=== PATIENT | female | born 1985 | race Caucasian/White ===

== ENCOUNTER 2024-06-04 14:57 | Outpatient (AMB) | payer OTHER, SELFPAY ==
--- NOTE | 2024-06-04 15:32 | A.OFFPC_ITS ---
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 ?? Prior PCP:? [facility] Last office visit/CPE:? May for CPE Acute issue(s):? Starting Adoption Process Anxiety Cough ?? PMHx:? SurgHx:? B/L Carpal Tunnel Surgeries FHx:? Dad: HTN. mGM: Skin CA. SocHx: Nonsmoker. EtOH 1-2 dr 1-2 x a week. MJ No drugs PFSH Medical History (Updated 06/04/24 @ 16:21 by Dc Moreland) Anxiety Carpal tunnel syndrome, bilateral Surgical History (Updated 06/04/24 @ 15:38 by Aleida Williamson [facility]) History of carpal tunnel surgery Family History (Updated 06/04/24 @ 15:36 by Aleida Williamson CMA) Maternal Grandfather No problems noted. Father High blood pressure Maternal Grandmother Cancer Female Reproductive History Menstrual Date of last menstrual period: 06/03/24 Questionnaire PHQ-9 Over the last 2 weeks, how often have you been bothered by any of the following problems? 1. Little interest or pleasure in doing things: not at all 2. Feeling down, depressed, or hopeless: several days 3. Trouble falling or staying asleep, or sleeping too much: more than half the days 4. Feeling tired or having little energy: several days 5. Poor appetite or overeating: more than half the days 6. Feeling bad about yourself - or that you are a failure or have let yourself or your family down: more than half the days 7. Trouble concentrating on things, such as reading the newspaper or watching television: several days 8. Moving or speaking so slowly that other people could have noticed. Or the opposite - being so fidgety or restless that you have been moving around a lot more than usual: not at all 9. Thoughts that you would be better off or of hurting yourself in some way: not at all Total score: 9 Depression Screening Interpretation: Positive Depression Screening Done: Yes 40100 - PHQ-9 Billing: Yes Source: Developed by Drs. Vipul Lopez, Bina Sutton, Werner Shane and colleagues, with an educational carol from [employer]. Thrive Questionnaire Date Thrive assessed: 06/04/24 I am a: Patient What is your living situation today?: I have a steady place to live Within the past 12 months, did the food you bought not last and you didn't have the money to get more?: Never true Within the past 12 months, did you worry whether your food would run out before you got money to buy more?: Never true Do you have trouble paying for medicines?: No Do you have trouble getting transportation to medical appointments?: No Do you have trouble paying your heating and electricity bill?: No Do you have trouble taking care of your child, family member or friend?: No Do you have trouble with day-to-day activities such as bathing, preparing meals, shopping, managing finances, etc.?: No Are you currently unemployed and looking for a job?: No Are you interested in more education?: No Please select the resources that you would like help with: None Currently or been in a relationship where the following occur: No concerns reported THRIVE Score: 0 AUDIT C Alcohol Use Questionnaire (AUDIT-C) 1. How often do you have a drink containing alcohol?: 2-4 times a month 2. How many drinks containing alcohol do you have on a typical day when you are drinking?: 3 or 4 3. How often do you have six or more drinks on one occasion?: Less than monthly Total Score: 4 FELECIA-7 AMB Questionnaire FELECIA-7 Date FELECIA - 7 assessed: 06/04/24 Feeling nervous, anxious, or on edge: 3 = Nearly every day Not being able to stop or control worryin = Nearly every day Worrying too much about different things: 3 = Nearly every day Trouble relaxin = Not at all Being so restless that it is hard to sit still: 3 = Nearly every day Becoming easily annoyed or irritable: 1 = Several days Feeling afraid as if something awful might happen: 1 = Several days Total FELECIA-7 score (0-4 normal; 5-9 mild; 10-14 moderate; 15-21 severe): 14 Source: Developed by Drs. Vipul Lopez, Bina Sutton, Werner Shane and colleagues, with an educational carol from [employer]. FELECIA-7 Assessment Billing FELECIA-7 Assessment Tool: FELECIA-7 Assessment 10580 Review of Systems Const Denies chills, Denies fatigue, Denies fever(s), Denies headache(s) and Denies weakness ENT Denies dizziness and Denies headache(s) Card Denies chest pain, Denies lightheadedness, Denies dyspnea and Denies other (Palpitations) Resp Reports cough, Denies dyspnea, Denies wheezing and Denies other ( shortness of breath) Musc Denies numbness and Denies tingling Neuro Denies dizziness, Denies headache(s), Denies numbness, Denies tingling, Denies paresthesias and Denies weakness Psych Reports anxiety and Reports depression Endo Denies fatigue Aller/Immun Denies wheezing Physical exam (Primary Care) Vital Signs: Last Vital Signs Temp 98.1 F 06/04/24 15:44 Pulse 88 06/04/24 15:44 Resp 14 06/04/24 15:44 BP 120/78 06/04/24 15:44 Pulse Ox 97 06/04/24 15:44 Oxygen Delivery Method Room Air 06/04/24 15:44 BMI result Body Mass Index 38.7 PHQ-9: PHQ-9 Score PHQ-9: Total score 9 06/04/24 15:49 Depression Screening Interpretation: Positive Thrive Assessment: Date of Thrive Assessment Date Thrive assessed 06/04/24 06/04/24 15:47 Currently or been in a relationship where the following occur: No concerns reported Const General: no acute distress and well developed Nutritional Appearance: well nourished Orientation/consciousness: patient oriented x3 HENMT Head: Yes normocephalic and Yes atraumatic Eyes General: appearance normal, both eyes and all related structures Pupils: Equal, round and reactive pupils present EOM: EOMs intact bilaterally Resp Effort & Inspection: normal respiratory effort Auscultation: clear to auscultation bilaterally Cardio Rate: regular rate Rhythm: regular rhythm Heart sounds: S1 normal heart sound present, S2 normal heart sound present, no gallops, no murmurs and no rubs Neuro General: patient oriented x3 and gait normal Cranial nerves: Yes Equal, round and reactive pupils present Psych Affect: normal affect Coding Level of Care Code New Pt Level 3 (98438) Diagnoses Depression with anxiety F41.8 GERD (gastroesophageal reflux disease) K21.9 Cough R05.9 Neoplasm of uncertain behavior of skin D48.5 Family history of skin cancer Z80.8 Allergic sinusitis J30.9 Laboratory exam ordered as part of routine general medical examination Z00.00 Additional Codes FELECIA-7 Assessment Billing - FELECIA-7 Assessment Tool: FELECIA-7 Assessment 83035 ([id number]) PHQ-9 - 45598 - PHQ-9 Billing: Yes ([id number]) Assessment & Plan Assessment & Plan (1) Depression with anxiety: Code(s): F41.8 - Other specified anxiety disorders Category: Medical Plan: History?of?depression?and?anxiety.??PHQ-9?and?felecia?7?are?still?elevated. Will?increase?sertraline?to?75?mg?daily Patient?had?been?trying?to?get??but?h as?discontinue?this?and?is?looking?into?adoption. She?had?not?been?able?to?medication?when?she?was?trying??due?to?symptoms ?of?anxiety?and?depression. Would?decrease?50?mg?or?below?if?she?again?wants?to?try?to?become?. (2) GERD (gastroesophageal reflux disease): Code(s): K21.9 - Gastro-esophageal reflux disease without esophagitis Category: Medical Plan: She?uses?Tagamet?which?helps?her?symptoms?when?she?needs?it. Only?getting?symptoms?once?month?or?so?now. Discussed?lifestyle?changes Also?discussed?using?a?predictive?strategy?rather?than?on?treating?after?the?fac t. (3) Cough: Code(s): R05.9 - Cough, unspecified Category: Medical Plan: Patient?notes?recurrent?cough This?may?be?multifactorial?including?GERD?and?sinusitis Will?try?to?treat?these?underlying?issues?and?if?she?is?still?having?problem,?wi ll?consider?a?chest?x-ray?and?further?workup. Checking?CBC?is?well (4) Neoplasm of uncertain behavior of skin: Code(s): D48.5 - Neoplasm of uncertain behavior of skin Category: Medical Plan: Small?lesion?at?the?right?side?of?her?nose. Patient?has?a?family?history?of?skin?cancer Referred?to?dermatology (5) Family history of skin cancer: Code(s): Z80.8 - Family history of malignant neoplasm of other organs or systems Category: Medical Plan: As?above (6) Allergic sinusitis: Code(s): J30.9 - Allergic rhinitis, unspecified Category: Medical Plan: Allergic?sinusitis?with?noninfected effusion?and?right?TM Discussed?multiple?options?for?treating?allergic?rhinitis?and?sinusitis. Patient?will?try?nasal?saline,?humidified?air?and?a?second- generation?antihistamine. She?will?let?me?know?if?she?wants?further?interventions?or?referral?to?ENT. (7) Laboratory exam ordered as part of routine general medical examination: Code(s): Z00.00 - Encounter for general adult medical examination without abnormal findings Category: Medical Plan: Check?labs Orders: Orders Comprehensive [place]. Panel Fast Today Z00.00 - Encounter for general adult medical examination without abnormal findings Lipid Panel Today Z00.00 - Encounter for general adult medical examination without abnormal findings TSH reflex Free T4 Today Z00.00 - Encounter for general adult medical examination without abnormal findings UA and rflx microscopic Today Z00.00 - Encounter for general adult medical examination without abnormal findings Complete Blood Count Auto Diff Today R05.9 - Cough, unspecified, Z00.00 - Encounter for general adult medical examination without abnormal findings Microalbumin, Random (w Creat) Today I10 - Essential (primary) hypertension Referrals Dermatology Referral D48.5 - Neoplasm of uncertain behavior of skin Medications: New sertraline 75 mg (1.5 x 50 mg) PO DAILY 90 days 135 tabs 3RF
[2024-06-04 15:44] VITALS: BP 120/78; PULSE 88; RESP 14; TEMP 36.7; O2SAT 97; BMI 38.7
== END 2024-06-04 16:17 | disposition home or self-care (01) ==
PROVIDERS: PCP Registered Nurse; Visit Provider Family Medicine
DX: F41.8 Other specified anxiety disorders (principal); K21.9 Gastro-esophageal reflux disease without esophagitis; R05.9 Cough, unspecified; D48.5 Neoplasm of uncertain behavior of skin; Z80.8 Family history of malignant neoplasm of other organs or systems; J30.9 Allergic rhinitis, unspecified; Z00.00 Encounter for general adult medical examination without abnormal findings

== ENCOUNTER → 2024-06-04 14:57 | Outpatient (BNVA) | payer OTHER, SELFPAY | PROVIDERS: PCP Registered Nurse; Visit Provider Family Medicine | DX: F41.8 Other specified anxiety disorders (principal); K21.9 Gastro-esophageal reflux disease without esophagitis; R05.9 Cough, unspecified; D48.5 Neoplasm of uncertain behavior of skin; J30.9 Allergic rhinitis, unspecified; Z79.899 Other long term (current) drug therapy; Z80.8 Family history of malignant neoplasm of other organs or systems | CPT/HCPCS: 96127 ==

== ENCOUNTER 2024-09-28 07:47 | Outpatient (REF) | payer OTHER, SELFPAY ==
--- OUTSIDE RECORDS SUMMARY | 2024-09-28 07:51 | XMS_ITS ---
Author Organization [employer] [facility] Address [address] [place] [address] Care Team Providers Care Sterile Processing Technologist Name Role Phone JOSEFINA CALDERON Unavailable [phone] Encounters Encounter Location Date Provider Diagnosis [facility] [address] [address] 09/02/2024 JOSEFINA CALDERON Plan Of Treatment Next Appt Details Provider Name:JOSEFINA Luo, 09/08/2025 08:00:00 AM, [address] [place] [address], [place], [address], Progress Notes * OLIMPIA CHRISTENSENDOB:1985 (38 yo F)Acc No.[id number]:09/02/2024 Patient:?OLIMPIA CHRISTENSEN :1985???Age:38 Y???Sex:Female Address:[address] [place] [address], [address] * true * Date:? Generated for Jamisoni herbie/Candie/eTransmitting on:?09/28/2024 07:51 AM EDT
--- OUTSIDE RECORDS SUMMARY | 2024-09-28 07:51 | XMS_ITS ---
Author Organization [facility] Address [address] [facility] [address] [place] [address] Care Team Providers Care Space And Missile Operations Name Role Phone JOSEFINA CALDERON Unavailable [phone] REASON FOR VISIT Paperwork Encounters Encounter Location Date Provider Diagnosis [facility] [address] [place] [address] 09/16/2024 JOSEFINA CALDERON Plan Of Treatment Next Appt Details Provider Name:JOSEFINA Luo, 09/08/2025 08:00:00 AM, [address] [place] [address] [address], [place], [address], Progress Notes * OLIMPIA CHRISTENSENDOB:1985 (38 yo F)Acc No.[id number]:09/16/2024 Patient:?OLIMPIA CHRISTENSEN :1985???Age:38 Y???Sex:Female Address:[address] [place] [address], [address] * true * Date:? Generated for Printi ng/Fafroylang/eTransmitting on:?09/28/2024 07:51 AM EDT
--- OUTSIDE RECORDS SUMMARY | 2024-09-28 07:51 | XMS_ITS | Patient Health Record ---
Author Organization [facility] Address [address] [facility] [address] [place] [address] Care Team Providers Care Professor Of Genetics Name Role Phone ORQUIDEA CALDERON Unavailable [phone] Allergies No Known Allergies Results Component Value Reference Range Notes [id number] IGP No Culture 30 Plus Reviewed date:09/05/2024 08:30:29 AM Interpretation: Performing Lab:[facility] [place], [address], [address], [place], Phone - [phone], Director - [facility] Notes/Report: Clinical Information:RIKI LOPEZ [id number] LMP / Prev Treat...EHX=[id number] Dates / Results....08/21/2023 No. of containers..01 ThinPrep Vial DIAGNOSIS: NEGATIVE FOR IN TRAEPITHELIAL LESION OR MALIGNANCY. Specimen adequacy: Satisfactory for evaluation. Endocervical and/or squamous metaplastic cells (endocervical component) are present. Clinician provided ICD10: Z01.419 Performed by: Sanjay francis, Veneer Repairer Machine ([facility]) . . Note: The Pap smear is a screening test designed to aid in the detection of premalignant and malignant conditions of the uterine cervix. It is not a diagnostic procedure and should not be used as the sole means of detecting cervical cancer. Both false-positive and false-negative reports do occur. . Test Methodology: This liquid based ThinPrep(R) pap test was screened with the use of an image guided system. HPV Aptima Negative Negative This nucleic acid amplification test detects fourteen high-risk HPV types (16,18,31,33,35,39,45,51,52, 56,58,59,66,68) without differentiation. HPV Genotype Reflex Criteria not met, HPV Genotype not performed. PDF Report Reviewed date:09/05/2024 09:07:36 AM Interpretation: Performing Lab:[facility], [address] [place] [address], [address], [place], Phone - [phone], [facility] Notes/Report: Clinical Information:RIKI LOPEZ [id number] LMP / Prev Treat...[id number] Dates / Results....08/21/2023 No. of containers..01 ThinPrep Vial SURGICAL PATHOLOGY Reviewed date:11/09/2023 11:55:19 AM Interpretation: Performing Lab:Testing performed or reported by [facility], a Service of [facility], [address] [place] [address] Ramiro Rocha MD, Pulp Mill Operator [facility]# [id number] Notes/Report: Patient Name: OLIMPIA CHRISTENSEN Lab Patient : 1985 (Age: 37) Collection Date: 10/26/2023 Accession Date: 10/26/2023 Sign Out Date: 10/30/2023 Tissue Source: 1:ECC 2:CXBX 5 O'CLOCK Final Diagnosis: 1. Endocervix, curettage: - Endocervical glandular mucosa and squamous mucosa, negative for squamous intraepithelial lesion. 2. Cervix, 5 o'clock, biopsy: - Squamous mucosa without histopathologic change. A. Endocervical columnar component not represented. Primary Pathologist:Orquidea Cox M.D. electronically signed out by: Orquidea Cox M.D. / [facility] Clinical History: LGSIL Gross Description: Part 1. Labeled endocervical curettings . Received in formalin is a 1.9 x 1.6 x 0.1 cm aggregate of translucent mucus with red, lynn tissue. The specimen is entirely submitted. 1-multiple pieces, x 2. (EG)* Part 2. Labeled 5: 00 . Received in formalin is a 0.4 x 0.3 x 0.2 cm soft white, red tissue. The specimen is entirely submitted. 1- 1 piece, x 2. (EG)* As of July 29, 2023, the specimen processing and staining is performed at [facility] [place] [facility], [address] [place] [address] (CLIA#[id number]). Its performance characteristics determined by Tim. Dane London M.D. Pulp Mill Operator of Surgical Pathology, Liana Chung M.D. Pulp Mill Operator Cytopathology Phone #: [phone], On-Call Pathologist: [id number] Test, Urine Reviewed date:10/26/2023 01:34:59 PM Interpretation: Performing Lab: Notes/Report: Test, Urine Negative Reason For Referral No Information Medications Medication SIG (Take, Route, Fr equency, Duration) Notes Start Date End Date Status Sertraline HCl 50 MG 1 1/2 tabs Orally Once a day Active Social History Tobacco Use: Social History Observation Description Date Details (start date - stop date) Never Smoker NA - NA Tobacco Use/Smoking Question Answer Notes Are you a nonsmoker AUDIT-C (Standard) Question Answer Notes Did you have a drink contain ing alcohol in the past year? Yes How often did you have a dri nk containing alcohol in the past year? 2 to 3 times a week (3 points) How many drinks did you have on a typical day when you were drinking in the past year? 1 or 2 drinks (0 point) How often did you have six o r more drinks on one occasion in the past year? Less than monthly (1 point) Points 4 Interpretation Positive Problems Problem Type SNOMED Code ICD Code Onset Dates Problem Status W/U Status Risk Notes Problem Anxiety disorder (104021176) Anxiety disorder, unspecified (F41.9) Active confirmed Problem Male infertility (6791983) Male infertility, unspecified (N46.9) Active confirmed Problem Female infertility, unspecified (N97.9) Active confirmed Problem COVID-19 (396341994) COVID-19 (U07.1) Active confirmed Vital Signs Temperature 97.7 degrees Fahrenheit 09/02/2024 Blood pressure diastolic 74 mm Hg 09/02/2024 Height 64 in 09/02/2024 Blood pressure systolic 118 mm Hg 09/02/2024 Weight 224 lbs 09/02/2024 BMI 38.45 kg/m2 09/02/2024 Encounters Encounter Location Date Provider Diagnosis [facility] [address] [address] 10/26/2023 ORQUIDEA CALDERON Low grade squamous intraepithelial lesion on cytologic smear of cervix (LGSIL) R87.612 [facility] [address] [place] [address] 09/02/2024 ORQUIDEA CALDERON Encounter for gynecological examination (general) (routine) without abnormal findings Z01.419 [facility] [address] [place] [address] 09/02/2024 ORQUIDEA CALDERON Total [address] [place] [address] 09/16/2024 ORQUIDEA CALDERON Assessments Encounter Date Diagnosis (ICD Code) Assessment Notes Treatment Notes Treatment Clinical Notes Section Notes 10/26/2023 Low grade squamous intraepithelial lesion on cytologic smear of cervix (LGSIL) (ICD-10 - R87.612) 09/02/2024 Encounter for gynecological examination (general) (routine) without abnormal findings (ICD-10 - Z01.419) During the visit, the following areas of concern were addressed: Discussed cervical cancer screening with either cytology alone every 3 years or high risk HPV co-testing every 5 years as per ASCCP guidelines. Advised continued annual pelvic exams. Patient encouraged to increase her level of exercise. SBE technique encouraged/tau ght. Plan Of Treatment Pending Test Test Name Order Date ESTRADIOL 05/03/2021 FSH 05/03/2021 LH 05/03/2021 SEMEN ANALYSIS 05/03/2021 SEMEN ANALYSIS 08/15/2022 SEMEN ANALYSIS 08/16/2022 TSH WITH REFLEX TO FT4 05/03/2021 PROLACTIN WITH REFLEX TO MONOMERIC 05/03 Next Appt Details Provider Name:ORQUIDEA VASQUEZ Valerio, 09/08/2025 08:00:00 AM, [facility], [facility] [address], [place], [address], Insurance Providers Payer Name Payer Address Payer Phone Subscriber Number Group Number Insured Name Patient Relationship to Insured Coverage Start Date Coverage End Date [facility] [address] [place] [address] [phone] [id number] OLIMPIA CHRISTENSEN Self - patient is the insured Medical (General) History Medical History History ICD Code Anxiety disorder, unspecified F41.9 COVID-19 U07.1 Low grade squamous intraepit helial lesion on cytologic smear of cervix (LGSIL) R87.612 Surgical History Surgery Date(Month/Year) widom teeth extraction 2001 thyroid nodule biopsies in both lobes Bilateral carpal tunnel release 09/2023
--- OUTSIDE RECORDS SUMMARY | 2024-09-28 07:51 | XMS_ITS | Data Portability ---
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 Plan of Treatment Reminders Order Date Submit Date Provider Last Modified By Organization Details Last Modified Time Details Appointments None record ed. Lab None record ed. Referral None record ed. Procedures None record ed. Surgeries None record ed. Imaging XR, ankle, 3 or more view 023 02/13/20 23 [email or web address] [facility], [address] [place], [address], 12:50:18 Medication Orders None record ed. Patient TargetsNo targets recorded. Patient Instructions Encounter Date Encounter Id Patient Instructions Last Modified By Organization Details Last Modified Time 02/12/2023 [id number] learning about rice (rest, ice, compression, and elevation) Not available 02/12/2023 10:06:12 ankle sprain: rehab exercises Not available 02/12/2023 10:06:13 ankle sprain: care instructions Not available 02/12/2023 10:06:12 ice or heat to area whichever feels better elevate affected area if it is a limb alternate ibuprofen, 4 hours later tylenol, 4 hours later back to ibuprofen may wrap for extra support wear tennis shoes or good arch supportive shoes start drawing your ABCs with your injured ankle to help strengthen the ligaments and tendons SEE FAMILY DOCTOR IF PAIN PERSISTS AFTER THE ABOVE TREATMENT--YOU MAY NEED PHYSCIAL THERAPY OR POSSIBLE MRI WITH REFERRAL TO SPECIALIST [email or web address] Not available 02/12/2023 10:04:12 Reason for Referral None Reported. Problems Name Problem SNOMED Code Status Onset Date Resolution Date Notes Provider Name and Address Organization Details Recorded Time Primary infertility 725260745 Active 2022 KEN Hubbard - [facility] 09:38:27 Problem Notes None recorded. Medical Equipment None Reported. Allergies No known drug allergies Medications Name Sig Start Date Stop Date Status Note LastModified by Organization Details LastModified Time medroxyprog esterone 10 mg tablet TAKE 1 TABLET BY MOUTH DAILY FOR 14 DAYS 02/12 completed Not Available Not Available Not Available Pregnyl 10,000 unit intramuscul ar solution 02/12 completed Not Available Not Available Not Available estradiol 0.1 mg/24 hr semiweekly transdermal patch 02/12 completed Not Available Not Available Not Available progesteron e micronized 200 mg capsule 02/12 completed Not Available Not Available Not Available sertraline 25 mg tablet TAKE 1 TABLET BY MOUTH EVERY DAY DIRECTED 02/12 completed Not Available Not Available Not Available dexamethaso ne 0.5 mg tablet 02/12 completed Not Available Not Available Not Available Cetrotide 0.25 mg subcutaneou s kit 02/12 completed Not Available Not Available Not Available sertraline 50 mg tablet TAKE 1 TABLET BY MOUTH EVERY DAY active Not Available Not Available No t Available doxycycline hyclate 100 mg tablet 02/12 completed Not Available Not Available Not Available leuprolide 1 mg/0.2 mL subcutaneou s kit 02/12 completed Not Available Not Available Not Available Ovidrel 250 mcg/0.5 mL subcutaneou s syringe 02/12 completed Not Available Not Available Not Available Menopur 75 unit subcutaneou s solution 02/12 completed Not Available Not Available Not Available drospirenon e 3 mg-ethinyl estradiol 0.02 mg tablet TAKE 1 TABLET BY MOUTH DAILY 02/12 completed Not Available Not Available Not Available Gonal-F 1,050 unit subcutaneou s solution 02/12 completed Not Available Not Available Not Available Endometrin 100 mg vaginal insert 02/12 completed Not Available Not Available Not Available Gonal-F RFF Redi-Ject 900 unit/1.5 mL subcutaneou s pen injector 02/12 completed Not Available Not Available Not Available Vitals Date Recorded Body height Body mass index (BMI) Body weight Oxygen saturation Oxygen saturation in Arterial blood by Pulse oximetry Heart rate Respiratory rate Systolic blood pressure Diastolic blood pressure Provider Name and Address Organization Details Last Updated DateTime 162.56 cm 36.9 kg/m2 35203.3 6 g 99 % 99 % 58 /min 18 /min 125 mm[Hg] 74 mm[Hg] AMBER ROGERS - [facility] 09:47:28 Social History Question Answer Notes LastModified by Organizat ion Details LastModified Time Tobacco Smoking Status Never Smoker AMBER peterson [place] - [facility] 02/12/2023 09:40:05 What Is Your Level Of Alcohol Consumption? Occasional [email or web address] Information not available 02/12/2023 Do You Use Any Illicit Or Recreational Drugs? No Information not available 02/12/2023 Have You Recently Traveled Abroad? No [email or web address] Information not available 02/12/2023 Do You Or Have You Ever Used Any Other Forms Of Tobacco Or Nicotine? No Information not available 02/12/2023 Sex: Unknown Functional Status None recorded. Mental Status None recorded. Family History Relationship Description Onset Age of this Age Resolved Age Notes LastModified by Organization Details LastModified Time Father Hypertensive disorder [email or web address] Not available 2022 09:38:50 Medical History No medical history recorded. Gynecological History Statement/Question Response Date of LMP 01/28/2023 Is there any chance of ? No Obstetrics History GPAL:G 0 P 0 0 0 0 Past Encounters Encounter ID Performer Location Encounter Start Date Encounter Closed Date Diagnosis/Indication Diagnosis SNOMED-CT Code Diagnosis ICD10 Code Diagnosis [place] [id number] [place] [address] [facility] [address] [place] [address] 02/12/2023 08:57:18 02/12/2023 10:11:40 Sprain of right ankle 0030792345 8623472 S93.401A Health Concerns Section Related Observation LastModified by Organization Detrich ls LastModified Time None Recorded Concern Status LastModified by Organization Details LastModified Time None Recorded Advance Directives Directive None Recorded Payers Insurance Date Sequence Insurance Name Policy Number Policy Allen Covered Member ID Allen Member ID Guarantor Name 02/12/2023 1 [facility] Ekta Pérez [id number] Ekta Pérez Notes Date Note Type Note Provider Name and Address Organization Details Recorded Time 3 text/html Foot/Ankle UCReported bypatient.source of patient informationInformation obtained from patient; Patient arrived at Urgent Care ambulatory; learning styles: auditory; 37 year old female presented with her stating she twisted her right ankle while visiting her under construction house yesterday. further explained missed a step on stairs. denies any previous history of arthritis or fracture. Location:right; ankle Probleminjury; swelling Severity:moderate Duration:1 days Context:fall Associated Symptoms:no weakness; no numbness; no tingling; no redness; no warmth; no ecchymosis;swelling Aggravating factors:downstairs; standing; walking Alleviating factors:elevation; heat; ice; limited weight bearing; NSAIDS; rest Previous InjuryNo prior injury to affected body part Previous Treatmentnone Prior Imaging:none Bharath Ace NP [address] [place], [address], [place] - [facility] 02/12/2023 10:25:02 OBGyn Episode No OBEpisode recorded.
--- OUTSIDE RECORDS SUMMARY | 2024-09-28 07:51 | XMS_ITS ---
Author Organization [facility] Address [address] [place] [address] Care Team Providers Care Wet Finisher Wool Name Role Phone JOSEIFNA CALDERON Unavailable [phone] Allergies No Known Allergies Results Component Value Reference Range Notes [id number] IGP No Culture 30 Plus Reviewed date:09/05/2024 08:30:29 AM Interpretation: Performing Lab:[facility] [place], [address], [address], [place], Phone - [phone], Director - [facility] Notes/Report: Clinical Information:RIKI LOPEZ [id number] LMP / Prev Treat...WTD=[id number] Dates / Results....08/21/2023 No. of containers..01 ThinPrep Vial DIAGNOSIS: NEGATIVE FOR IN TRAEPITHELIAL LESION OR MALIGNANCY. Specimen adequacy: Satisfactory for evaluation. Endocervical and/or squamous metaplastic cells (endocervical component) are present. Clinician provided ICD10: Z0 1.419 Performed by: Sanjay francis, Pulpit Operator ([facility]) . . Note: The Pap smear [...] amplification test detects fourteen high-risk HPV types (16,18,31,33,35,39,45,51,52,56,58 ,59,66,68) without differentiation. HPV Genotype Reflex Criteria not met, HPV Genotype not performed. PDF Report Reviewed date:09/05/2024 09:07:36 AM Interpretation: Performing Lab:[facility] [place], [address], [address], [place], Phone - [phone], Director - [facility] Notes/Report: Clinical Information:RIKI LOPEZ [id number] LMP / Prev Treat...OQH=[id number] Dates / Results....08/21/2023 No. of containers..01 ThinPrep Vial REASON FOR VISIT Annual CORE STRIPPER Physical Medications Medication SIG (Take, Route, Fr equency, [...] monthly (1 point) Points 4 Interpretation Positive Vital Signs Temperature 97.7 degrees Fahrenheit 09/03/19 25 Blood pressure systolic 118 mm Hg 09/03/19 25 Blood pressure diastolic 74 mm Hg 025 Height 64 in 09/02/2024 Weight 224 lbs 09/02/2024 BMI 38.45 kg/m2 09/02/2024 Encounters Encounter Location Date Provider Diagnosis [address] [place] [address] 09/02/2024 JOSEFINA CALDERON Encounter for gynecological examination (general) (routine) without abnormal findings Z01.419 Assessments Encounter Date Diagnosis (ICD Code) Assessment Notes Treatment Notes Treatment Clinical Notes Section Notes 09/02/2024 Encounter for gynecological examination (general) (routine) [...] SBE technique encouraged/tau ght. Plan Of Treatment Treatment Notes Assessment Notes Encounter for gynecological examination (general) (routine) without abnormal findings During the visit, the following areas of concern were addressed: Discussed cervical cancer screening with either cytology alone every 3 years or high risk HPV co-testing every 5 years as per ASCCP guidelines. Advised continued annual pelvic exams. Patient encouraged to increase her level of exercise. SBE technique encouraged/taught. 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 Annual CORE STRIPPER Physical * HPI: ???Constitutional:? 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 She has been in state of good health since her last exam. She has the following concerns: none She had an infertility consult September 2021. In 2023 she had been seeing [facility]. She? had 1 IVF cycle with [facility] and 2 with [facility]. They told her there was nothing more they could do. She was discouraged at her last yearly exam?and was considering adoption. She also was interested in getting another opinion from [facility], but opted not to - they just didn't feel good about IVF.? She reports she is going through the process of private adoption. She has received the Moderna Covid-19 vaccine. Relationship status: for nearly 5 years. She is sexually active. Sexual partner(s): male. She does not wish to have STI testing. Menses: monthly, lasting 3 days, 1 days heavy then quickly tapering?flow. No intermenstrual bleeding. Contraception: not preventing conception The patient has had an abnormal pap smear within the last 5 years. Her most recent pap smear was 08/21/23 - LSIL, neg HR HPV. The previous pap? in 07/2022 was also LSIL, neg HR? HPV. Colposcopy done 10/26/23 with neg bx and ECC.? Due for cotesting today . The patient does exercise. She exercises x 4-6 days/week by running or walking, and some weights. * ROS:?Annual Hogshead Stock Clerk Exam ROS:?Bowel habit changes?denies.?Bladder symptoms?denies.?Vaginal discharge, unusual?denies.?Vaginal itch or odor?denies.?weight or appetite changes?denies.?Chest pains, SOB?denies.?depression?denies.?Breast:?Denies?Breast lump.?Denies?Nipple discharge.?Hematology:?Denies?Swollen glands.?Skin:?Patient complaining of?changing moles.?Comments?has derm appointment in 2 days.?Psychiatric:?Admits?Anxiety,?well-controlled on meds.? * Medical History:? * Hogshead Stock Clerk History:?/ Para?0/0.?Sexual activity?currently sexually active.?Last Pap Smear:?08/21/23 LGSIL, NEG HRHPV, 08/12/22 LGSIL, NEG HPV, 08/11/2017 - NIL, neg HR HPV (viewed on My Chart by LLS).?Mammogram:?not due per age.?Abnormal Pap Smear:?LGSIL.?LMP and menses?08/02/2024,, 10/17/23.? Control:?none.?*Hep B Vac?09/30/2013.? * OB History:?Total pregnancies?0.? * Surgical History:?widom corky h extraction 2002thyroid nodule biopsies in both lobes Bilateral carpal tunnel release 09/2023 * Hospitalization/Major Diagno stic Procedure:?Denies Past Hospitalization * Family History:?Mother: katie cortez 66 yrs, well.?Father: alive 68 yrs, Prostate cancer, HTN, osteoarthritis, cancer free in 2024.? Sister - Kristi - 1988 - well - has had 2 healthy pregnancies Brother - Alberto - 1994 - well Denies family history of breast, colon, uterine or ovarian cancers. * Social History:?Tobacco Use:?Tobacco Use/Smoking?Are you a?nonsmoker ???Drugs/Alcohol:?Drugs?Have you used drugs other than those for medical reasons in the past 12 months??No ???Miscellaneous:?Domestic violence: no. ?Exercise: runs. ?Home smoke detector use: yes, smoke detectors, carbon monoxide detector. ?Housing: owns a home. ?Living with: spouse. ?Marital status: , Maverick. 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 ?Pets: dogs - 1 shorky . ?Sexual abuse: no. ?Sexually active: yes, monogamous relationship. ?Verbal abuse: no. ???Drug/Alcohol:?AUDIT-C (Standard)?Did you have a drink containing alcohol in the past year??Yes ?How often did you have a drink containing alcohol in the past year??2 to 3 times a week (3 points) ?How many drinks did you have on a typical day when you were drinking in the past year??1 or 2 drinks (0 point) ?How often did you have six or more drinks on one occasion in the past year??Less than monthly (1 point) ?Points?4 ?Interpretation?Positive * Medications:?TakingSertralin e HCl 50 MG Tablet 1 1/2 tabs Orally Once a day Medication List reviewed and reconciled with the patientTaking Sertraline HCl 50 MG Tablet 1 1/2 tabs Orally Once a day Medication List reviewed and reconciled with the patient * Allergies:?N.K.D.A.no[Allerg ies Verified] Objective: * Vitals:?Ht: 64 in, Wt:224lbs , BMI:38.45Index, BP:118/74mm Hg, Temp:97.7F. * Examination: ???General Examination: ?GENERAL APPEARANCE:?in no acute distress,well developed, well nourished,professor of violin present in room.?HEAD:?normocephalic, atraumatic.?NECK/THYROID:?neck supple, full range of motion,thyroid normal.?LYMPH NODES:?no axillary or supraclavicular adenopathy.?SKIN:?normal,good turgor,no rashes,no suspicious lesions.?BREASTS:?normal,no dimpling,no discharge,no drainage,no masses palpable bilaterally,nontender.?ABDOMEN:?soft, non-tender, non distended without masses or hepatosplenomegay.?BACK:?no costovertebral angle tenderness.?FEMALE GENITOURINARY:?Vulva without lesions or masses, vagina pink without abnormal discharge, lesions or masses, cervix appears normal and is not tender to palpation, uterus is normal size, mobile, nontender and anteverted, ovaries are not palpable.?NEUROLOGIC:?alert and oriented,gait normal.?PSYCH:?alert, oriented,cognitive function intact,cooperative with exam,good eye contact,mood/affect full range,speech clear.? Assessment: * Assessment: 1.?Encounter for gynecologic al examination (general) (routine) without abnormal findings - Z01.419 (Primary)??? Plan: * Treatment: ? Value Reference Range ?. . - * ?HPV Aptima Negative Negative - * CERV/VAGThis lab was reviewe d by JOSEFINA CALDERON on 09/05/2024 at 08:30 AM EDT Notes: During the visit, the following areas of concern were addressed: Discussed cervical cancer screening with either cytology alone every 3 years or high risk HPV co-testing every 5 years as per ASCCP guidelines. Advised continued annual pelvic exams. Patient encouraged to increase her level of exercise. SBE technique encouraged/taught. ?? * Procedure Codes:? * Follow Up:?1 Year (Reason: Y early Hogshead Stock Clerk Exam) * Images: Billing Information: * Visit Code:? 79198 Preventive Care Est Pt. Age 18-39. * Procedure Codes:? 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 She has been in state of good health since her last exam. She has the following concerns: none She had an infertility consult September 2021. In 2023 she had been seeing [facility]. She had 1 IVF cycle with [facility] and 2 with [facility]. They told her there was nothing more they could do. She was discouraged at her last yearly exam and was considering adoption. She also was interested in getting another opinion from [facility], but opted not to - they just didn't feel good about IVF. She reports she is going through the process of private adoption. She has received the Moderna Covid-19 vaccine. Relationship status: for nearly 5 years. She is sexually active. Sexual partner(s): male. She does not wish to have STI testing. Menses: monthly, lasting 3 days, 1 days heavy then quickly tapering flow. No intermenstrual bleeding. Contraception: not preventing conception The patient has had an abnormal pap smear within the last 5 years. Her most recent pap smear was 08/21/23 - LSIL, neg HR HPV. The previous pap in 07/2022 was also LSIL, neg HR HPV. Colposcopy done 10/26/23 with neg bx and ECC. Due for cotesting today . The patient does exercise. She exercises x 4-6 days/week by running or walking, and some weights. Examination Category Sub-Category Detail Notes Category Not es General Examination GENERAL APPEARANCE: in no ac [place] distress, well developed, well nourished, professor of violin present in room HEAD: normocephalic, atrau matic NECK/THYROID: neck supple, full ra nge of motion, thyroid normal ABDOMEN: soft, non-tender, no n distended without masses or hepatosplenomegay NEUROLOGIC: alert and oriented, gait normal SKIN: normal, good turgor, no rashes, no suspicious lesions BACK: no costovertebral an gle tenderness BREASTS: normal, no dimpling, no discharge, no drainage, no masses palpable bilaterally, nontender LYMPH NODES: no axillary or supra clavicular adenopathy PSYCH: alert, oriented, cog nitive function intact, cooperative with exam, good eye contact, mood/affect full range, speech clear FEMALE GENITOURINARY: Vulva without lesi ons or masses, vagina pink without abnormal discharge, lesions or masses, cervix appears normal and is not tender to palpation, uterus is normal size, mobile, nontender and anteverted, ovaries are not palpable
[2024-09-28 07:59] LABS: MANUAL DIFF FLAG NO
[2024-09-28 09:12] LABS: Basophils Absolute Auto 0.1 X10*3/uL (0.0-0.2); Basophils Percent Auto 0.7 % (0-2); Eosinophils Absolute Auto 0.2 X10*3/uL (0.0-0.4); Eosinophils Percent Auto 2.7 % (0-4); Hematocrit 38.7 % (37.0-47.0); Imm Gran Abs Auto 0.01 X10*3/uL (0.00-0.03); Imm Gran Pct Auto 0.1 % (0.0-0.4); Lymphocytes Absolute Auto 1.9 X10*3/uL (1.2-4.9); Lymphocytes Percent Auto 26.1 % (20-40); Mean Corpuscular HGB Conc 33.6 g/dl (31.0-35.0); Mean Corpuscular Volume 92.1 fL (80.0-98.0); Mean Platelet Volume 10.9 fL (9.4-12.3); Monocytes Absolute Auto 0.6 X10*3/uL (0.1-1.2); Monocytes Percent Auto 8.2 % (2-11); Neutrophils Absolute Auto 4.4 x10*3/uL (2.0-8.3); Neutrophils Percent Auto 62.2 % (45-73); Platelet Count 254 X10*3/uL (160-400); Red Cell Distribution Width 12.2 % (11.0-16.0); White Blood Count 7.1 X10*3/uL (4.8-10.8)
[2024-09-28 09:15] LABS: Appearance Urine Clear; Color Urine Yellow; Glucose Urine UA Negative (Negative); Leukocyte Esterase Urine Negative (Negative); Nitrite Urine Negative (Negative); PH 5.5 (5.0-9.0); Specific Gravity - Urine 1.025 (1.005-1.025); Urine Blood Negative (Negative); Urine Ketones Negative (Negative); Urine Protein Negative (Neg-Trace)
[2024-09-28 09:51] LABS: Alanine Aminotransferase 22 U/L (0-31); Albumin Level 4.1 g/dL (3.5-5.0); Alkaline Phosphatase 77 U/L (39-117); Anion Gap 12 (12-20); Aspartate Amino Transferase 17 U/L (5-31); Bilirubin Total 0.3 mg/dL (0.0-1.0); Blood Urea Nitrogen 12 mg/dL (9-16); Calcium 9.2 mg/dL (8.4-10.2); Carbon Dioxide 23 mmol/L (22-29); Chloride 110 mmol/L (96-108); Cholesterol 225 mg/dL (<200); Estimated Glomerular Filt Rate > 60; Glucose Fasting 96 mg/dL (60-99); HDL Cholesterol 44 mg/dL (>40); LDL Cholesterol Calculated 161 mg/dL (<100); Potassium 3.8 mmol/L (3.3-5.1); Sodium 141 mmol/L (135-145); Total Protein 6.8 g/dL (6.5-8.0); Triglycerides 104 mg/dL (<150)
[2024-09-28 10:07] LABS: Creatinine Urine 179.51 mg/dL; Microalbum/Creatinine Ratio Ur 4.4 ug/mg cr (<30)
[2024-09-28 10:14] LABS: TSH reflex Free T4 1.14 uIU/mL (0.32-4.0)
== END 2024-09-28 07:48 | disposition home or self-care (01) ==
LOC: HO.LAB 07:47
PROVIDERS: PCP Family Medicine; Visit Provider Family Medicine
DX: Z00.00 Encounter for general adult medical examination without abnormal findings (principal); R05.9 Cough, unspecified; I10 Essential (primary) hypertension
CPT/HCPCS: 36415; 80053; 80061; 81003; 82043; 82570; 84443; 85025

== ENCOUNTER 2025-03-14 14:27 | Outpatient (AMB) | payer OTHER, SELFPAY ==
--- NOTE | 2025-03-14 14:32 | MHC.PC.OV ---
Vital Signs 03/14/25 14:36 Height 5 ft 4 in Weight 228 lb 2 oz BMI 39.2 BP 122/74 Blood Pressure Location Rt brachial Position Sitting Respiration 14 Pulse 100 Pulse Source Pulse Oximeter Temp 97.9 F Temp Source Temporal Artery Scan Pulse Oximetry (%) 95 Oxygen Delivery Method Room Air Intake Visit Reasons: GI Intake Note: Ekta presents in the office today for GI Issues. Patient has not had a solid bowel movement in two months. Allergies No Known Allergies Allergy (Verified 03/14/25 14:34) Medication List - Last Reconciled 03/14/25 by Baldev Aldridge MD sertraline 75 mg (1.5 x 50 mg) PO DAILY 90 days Tobacco use date assessed: 03/14/25 Dental Screening Dental Screen Date: 03/14/25 Did you have a dental visit in the last 12 months?: Yes Did you have a dental problem in the last 6 months where you did not have access to dental care?: No Was dental information given to patient?: Patient has dentist HPI GI HPI Details 39 y/o female presents today with complaints of longstanding diarrhea. Pt notes diarrhea x2 months. She describes loose stools. Did note one episode of bright red blood. Reports some abd. discomfort but this is not consistent. Denies any constipation. She notes she drinks plenty of water. Urinates normally. Labs had been drawn 09/28/24. Reviewed labs with pt. Triglycerides 104. TC 225. LDL 161. HDL 44. HPI Comments History of Present Illness Details Documentation assistance for Baldev Aldridge MD, was provided by Dc Moreland,? Rocket Assembly Operator on 03/14/2025 at 2:57 PM EST. I, Dr. Aldridge, have read, observed, and verified documentation. ?? REPLACED BY [facility] Medical History (Updated 03/14/25 @ 15:05 by Dc Moreland) Anxiety Carpal tunnel syndrome, bilateral Surgical History (Updated 06/04/24 @ 15:38 by MARCY Garcia) History of carpal tunnel surgery Family History (Updated 06/04/24 @ 15:36 by MARCY Garcia) Maternal Grandfather No problems noted. 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 Current occupational exposures/hazards: No Cognitive needs: No Hearing needs: No Vision needs: No Questionnaire Thrive Questionnaire Date Thrive assessed: 06/04/24 I am a: Patient What is your living situation today?: I have a steady place to live Within the past 12 months, did the food you bought not last and you didn't have the money to get more?: Never true Within the past 12 months, did you worry whether your food would run out before you got money to buy more?: Never true Do you have trouble paying for medicines?: No Do you have trouble getting transportation to medical appointments?: No Do you have trouble paying your heating and electricity bill?: No Do you have trouble taking care of your child, family member or friend?: No Do you have trouble with day-to-day activities such as bathing, preparing meals, shopping, managing finances, etc.?: No Are you currently unemployed and looking for a job?: No Are you interested in more education?: No Please select the resources that you would like help with: None Currently or been in a relationship where the following occur: No concerns reported THRIVE Score: 0 FELECIA-7 AMB Questionnaire FELECIA-7 Date FELECIA - 7 assessed: 06/04/24 Source: Developed by Drs. Vipul Lopez, Bina Sutton, Werner Shane and colleagues, with an educational carol from [employer]. Review of Systems Const Denies chills, Denies fatigue, Denies fever(s), Denies headache(s) and Denies weakness ENT Denies dizziness and Denies headache(s) Card Denies dyspnea Resp Denies cough, Denies dyspnea, Denies wheezing and Denies other (shortness of breath) GI Reports diarrhea Musc Denies numbness and Denies tingling Neuro Denies dizziness, Denies headache(s), Denies numbness, Denies tingling and Denies weakness Psych Denies anxiety and Denies depression Endo Denies fatigue Aller/Immun Denies wheezing Physical exam (Primary Care) Vital Signs: Last Vital Signs Temp 97.9 F 03/14/25 14:36 Pulse 100 03/14/25 14:36 Resp 14 03/14/25 14:36 BP 122/74 03/14/25 14:36 Pulse Ox 95 03/14/25 14:36 Oxygen Delivery Method Room Air 03/14/25 14:36 BMI result Body Mass Index 39.2 Tobacco/Smoking Status: Tobacco use Status Tobacco use date assessed 03/14/25 03/14/25 14:38 Patient Tobacco Use Status Never used Tobacco 03/14/25 14:38 e-Cigarette/Vaping Use Never Used 03/14/25 14:38 Thrive Assessment: Date of Thrive Assessment Date Thrive assessed 06/04/24 03/14/25 14:38 Currently or been in a relationship where the following occur: No concerns reported Const General: well developed; No acute distress Nutritional Appearance: well nourished Orientation/consciousness: patient oriented x3 HENMT Head: Yes normocephalic and Yes atraumatic Eyes General: appearance normal, both eyes and all related structures Pupils: Equal, round and reactive pupils present EOM: EOMs intact bilaterally Resp Other: Coarse breath sounds Effort & Inspection: normal respiratory effort Auscultation: clear to auscultation bilaterally Cardio Rate: regular rate Rhythm: regular rhythm Heart sounds: S1 normal heart sound present, S2 normal heart sound present, no gallops, no murmurs and no rubs Neuro General: patient oriented x3 and gait normal Cranial nerves: Yes Equal, round and reactive pupils present Psych Affect: normal affect Coding Level of Care Code Est Pt Level 3 (28497) Diagnoses Diarrhea R19.7 Hypercholesterolemia E78.00 Assessment & Plan Assessment & Plan (1) Diarrhea: Code(s): R19.7 - Diarrhea, unspecified Category: Medical Plan: Two months of loose and sometimes liquid stools No abdominal pain, bloating and no blood in stools No nausea or vomiting Patient does not note any trigger foods or any inciting incident or illness. No abdominal tenderness Will check stool studies and lab work Will have her trial bowel rest regimen with clear liquid diet then advance as tolerated Will follow-up in 1-2 weeks to review lab work and re-evaluate patient. (2) Hypercholesterolemia: Code(s): E78.00 - Pure hypercholesterolemia, unspecified Category: Medical Plan: LDL cholesterol significantly elevated After dealing with the above subacute/acute issue she should work on a diet low in saturated fats and cholesterol We can follow-up on this in a few months. Orders: Orders Ova and Parasite Today R19.7 - Diarrhea, unspecified Comprehensive [place]. Panel Fast Today Z00.00 - Encounter for general adult medical examination without abnormal findings Complete Blood Count Auto Diff Today Z00.00 - Encounter for general adult medical examination without abnormal findings TSH reflex Free T4 Today Z00.00 - Encounter for general adult medical examination without abnormal findings UA CC w/rflx Micro + Cult Today Z00.00 - Encounter for general adult medical examination without abnormal findings GI Panel Today R19.7 - Diarrhea, unspecified CDiff Gene PCR Today R19.7 - Diarrhea, unspecified
[2025-03-14 14:36] VITALS: BP 122/74; PULSE 100; RESP 14; TEMP 36.6; O2SAT 95; BMI 39.2
--- OUTSIDE RECORDS SUMMARY | 2025-03-14 16:22 | XMS_ITS | Patient Health Record ---
Author Organization [facility] Address [address] [place] [address] Care Team Providers Care Vaccinator Name Role Phone JOSEFINA CALDERON Unavailable [phone] Allergies No Known Allergies Results Component Value Reference Range Notes PDF Report Reviewed date:09/05/2024 09:07:36 AM Interpretation: Performing Lab:[facility], [address], [place], Phone - [phone], Director - [facility] Notes/Report: Clinical Information:RIKI LOPEZ [id number] LMP / Prev Treat...[id number] Dates / Results....08/21/2023 No. of containers..01 ThinPrep Vial [id number] IGP No Culture 30 Plus Reviewed date:09/05/2024 08:30:29 AM Interpretation: Performing Lab:[facility], [address], [place], Phone - [phone], Director - [facility] Notes/Report: Clinical Information:RIKI LOPEZ [id number] LMP / Prev Treat...[id number] Dates / Results....08/21/2023 No. of containers..01 ThinPrep Vial DIAGNOSIS: NEGATIVE FOR IN TRAEPITHELIAL LESION OR MALIGNANCY. Specimen adequacy: Satisfactory for evaluation. Endocervical and/or squamous metaplastic cells (endocervical component) are present. Clinician provided ICD10: Z0 1.419 Performed by: Sanjay francis Plate Straightener ([facility]) . . Note: The Pap smear [...] Criteria not met, HPV Genotype not performed. Reason For Referral No Information Medications Medication [...] W/U Status Risk Notes Problem Anxiety disorder (444568786) Anxiety disorder, unspecified (F41.9) Active confirmed Problem Male infertility (1153730) Male infertility, unspecified (N46.9) Active confirmed Problem Female infertility (1337499) Female infertility, unspecified (N97.9) Active confirmed Problem COVID-19 (650208079) COVID-19 (U07.1) Active confirmed Vital Signs Temperature 97.7 degrees Fahrenheit 09/02/2024 Blood pressure diastolic 74 mm Hg 09/02/2024 Height 64 in 09/02/2024 Blood pressure systolic 118 mm Hg 09/02/2024 Weight 224 lbs 09/02/2024 BMI 38.45 kg/m2 09/02/2024 Encounters Encounter Location Date Provider Diagnosis [address] [place] [address] 09/02/2024 JOSEFINA CALDERON Encounter for gynecological examination (general) (routine) without abnormal findings Z01.419 [facility] [address] [place] [address] 09/02/2024 JOSEFINA CALDERON Total [facility] [address] [place] [address] 09/16/2024 JOSEFINA CALDERON Assessments Encounter Date Diagnosis (ICD Code) [...] TO MONOMERIC 05/03 Next Appt Details Provider Name:JOSEFINA Luo, 09/19/2025 03:00:00 PM, [address], [address], [place], [address], Insurance Providers Payer Name Payer Address Payer Phone Subscriber Number Group Number Insured Name Patient Relationship to Insured Coverage Start Date Coverage End Date [facility] [address] [place] [id number] OLIMPIA CHRISTENSEN Self - patient is the insured Medical (General) History Medical History History ICD Code Anxiety disorder, unspecified F41.9 COVID-19 U07.1 Low grade squamous intraepit helial lesion on cytologic smear of cervix (LGSIL) R87.612 Surgical History Surgery Date(Month/Year) widom teeth extraction 2001 thyroid nodule biopsies in both lobes Bilateral carpal tunnel release 09/2023
--- OUTSIDE RECORDS SUMMARY | 2025-03-14 16:22 | XMS_ITS | Data Portability ---
Author Organization [facility] [employer] [facility], [address] Address [address] [place] [address] Care Team Providers Care Logging Supervisor Name Role Phone ADRIANE BARGERNIFER Primary Care Provider [phone] Assessment No assessment recorded. Plan of Treatment Reminders Order Date Submit Date Provider Last Modified By Organization Details Last Modified Time Details Appointments None record ed. Lab None record ed. Referral None record ed. Procedures None record ed. Surgeries None record ed. Imaging XR, ankle, 3 or more view 023 02/13/20 23 [email or web address], [address] [place], [address], 12:50:18 Medication Orders None record ed. Patient TargetsNo targets recorded. Patient Instructions Encounter Date Encounter Id Patient Instructions Last Modified By Organization Details Last Modified Time 02/12/2023 [id number] learning about rice (rest, ice, compression, and elevation) Not available 02/12/2023 10:06:12 ankle sprain: rehab exercises [email or web address] Not available 02/12/2023 10:06:13 ankle sprain: care [...] Address Organization Details Recorded Time Primary infertility [id number] Active 2022 KEN Hubbard - [facility] [...] Available Not Available Gonal-F RFF Redi-Ject 900 unit/1.44 mL subcutaneou s pen injector 02/12 completed Not Available Not Available Not Available Vitals Date Recorded Body height Body mass index (BMI) Body weight Oxygen saturation Oxygen saturation in Arterial blood by Pulse oximetry Heart rate Respiratory rate Systolic And Diastolic Provider Name and Address Organization Details Last Updated DateTime 3 162.56 cm 36.9 kg/m2 47869.3 6 g 99 % 99 % 58 /min 18 /min 125/74 mm[Hg] AMBER HOROWITZ PA - [facility] 3 09:47:28 Social History Question Answer Notes LastModified by Fridge Details LastModified Time Tobacco Smoking Status Never Smoker AMBER peterson [place] - [facility] 02/12/2023 09:40:05 Have You Recently Traveled Abroad? No Information not available 02/12/2023 Sex: Unknown Functional Status Question Answer Note LastModified by Fridge Details LastModified Time Do you use any illicit or recreational drugs? No [email or web address] Information not available 02/12/2023 Do you or have you ever used any other forms of tobacco or nicotine? No [email or web address] Information not available 02/12/2023 What is your level of alcohol consumption? Occasional [email or web address] Information not available 02/12/2023 Mental Status None recorded. Family History Relationship Description Onset Age of this Age Resolved Age Notes LastModified by Organization Details LastModified Time Father Hypertensive disorder [email or web address] Not available 2022 09:38:50 Medical History No medical history recorded. Gynecological History Statement/Question Response Date of LMP 01/28/2023 Is there any chance of ? No Obstetrics History GPAL:G 0 P 0 0 0 0 Past Encounters Encounter ID Performer Location Encounter Start Date Encounter Closed Date Diagnosis/Indication Diagnosis SNOMED-CT Code Diagnosis ICD10 Code Diagnosis IMO Codes [place] [id number] [place] [address] [address] [place] [address] 02/12/2023 08:57:18 02/12/2023 10:11:40 Sprain of right ankle [id number] 9449915 S93.401A Health Concerns Section Related Observation LastModified by Organization Detai ls LastModified Time None Recorded Concern Status LastModified by Organization Details LastModified Time None Recorded Advance Directives Directive None Recorded Payers Insurance Date Sequence Insurance Name Policy Number Policy Allen Covered Member ID Allen Member ID Guarantor Name 02/12/2023 [facility] Ekta Pérez [id number] Ekta Pérez Notes Date Note Type Note Provider Name and Address Organization Details Recorded Time 3 text/htm l Foot/Ankle UCReported by PatientHPIFor associated symptoms, patient reportsswellingbut reportsno weakness,no numbness,no tingling,no redness,no warmth, andno ecchymosis. For source of patient information, patient reportsinformation obtained from patient,patient arrived at urgent care ambulatory, andlearning styles: auditory(37 year old female presented with her stating she twisted her right ankle while visiting her under construction house yesterday. further explained missed a step on stairs. denies any previous history of arthritis or fracture.). For location, patient reportsrightandankle. For problem, patient reportsinjuryandswelling. For severity, patient reportsmoderate. For duration, patient reports1 days. For context, patient reportsfall. For aggravating factors, patient reportsdownstairs,standing, andwalking. For alleviating factors, patient reportselevation,heat,ice,li mited weight bearing,nsaids, andrest. For previous injury, patient reportsno prior injury to affected body part. For previous treatment, patient reportsnone. For prior imaging, patient reportsnone. Bharath Ace NP [address] [place], [address], [place] - [facility] 02/12/2023 10:25:02 OBGyn Episode No OBEpisode recorded.
--- OUTSIDE RECORDS SUMMARY | 2025-03-14 16:22 | XMS_ITS | Clinical Summary ---
Author Organization [facility] Address [address] [place] [phone] Phone Care Team Providers Care Yarn Winder Name Role Phone Unknown, Unknown Primary Care Provider Kathy kirk Immunizations Immunization Administration Dates Next Due COVID-19 (Pre-03/13) Moderna Vaccine, mRNA, PF 0 07/06/2020,06/08/2020 Influenza Quadrivalent Preservative Free IM 01/20,02/04/2020 Tdap 11/26/2013,11/26/2013 Social History Tobacco Use Types Packs/Day Years Used Date Smoking Tobacco: Never Assessed Education Answer Date Recorded Are you interested in more education? Not on kendall e 09/16/2022 Are you concerned about learning? Not on file 09/16/2022 No 09/16/2022 No 09/16/2022 Digital Access Answer Date Recorded No 10/15/2022 No 10/15/2022 No 10/15/2022 Reliable internet access at home? Not on file 10/15/2022 Device with a working camera? Not on file Comments Unknown Sex and Gender Information Value Date Recorded Sex Assigned at Not on file Legal Sex Female 8:17 AM EDT Gender Identity Not on file Sexual Orientation Not on file Plan of Treatment Health Maintenance Due Date Last Done Comments DEPRESSION SCREENING 1997 SMOKING Hx and SMOKELESS TOBACCO SCREENING 1998 HEPATITIS C SCREENING 11/11/2003 HIV ONE-TIME SCREENING (18-6 5 YEARS) 11/11/2003 PAP SMEAR 2006 Adult Td,Tdap Booster 11/27/2023 11/26/2013 , 11/26/2013 INFLUENZA VACCINE (#1) 2024 0, 02/04/2020, 03/11/2016 COVID-19 VACCINE (3 2024-2 6 season) 2025 07/06/2020, 06/08/2020 MENINGOCOCCAL VACCINES (ACWY) Aged Out 08/27/2015 No longer eligible based on patient's age to complete this topic HEPATITIS A VACCINES Aged Out No long er eligible based on patient's age to complete this topic HIB VACCINES Aged Out No longer eligi ble based on patient's age to complete this topic MENINGOCOCCAL VACCINES (B) Aged Out N o longer eligible based on patient's age to complete this topic PNEUMOCOCCAL VACCINES (0-49 years) Aged Out No longer eligible b ased on patient's age to complete this topic Medical Devices Not on file Care Teams Yarn Winder Relationship Specialty Start Date End Date Unknown, Unknown, PCP - General 02/04/20 Additional Source Comments The information contained in this document represents components of the legal health record. It is not the complete legal health record.[facility]
== END 2025-03-14 15:08 | disposition home or self-care (01) ==
LOC: HO.HMCFM 14:28
PROVIDERS: PCP Family Medicine; Visit Provider Family Medicine
DX: R19.7 Diarrhea, unspecified (principal); E78.00 Pure hypercholesterolemia, unspecified